=== PATIENT | female | born 2000 | race Caucasian/White ===

== ENCOUNTER 2020-04-09 12:54 | Emergency (ER) | payer OTHER ==
[2020-04-09 13:17] VITALS: BP 114/67; TEMP 99.2; O2SAT 99
--- NOTE | 2020-04-09 13:19 | ED.PDOC ---
History of Present Illness - General Chief Complaint: Dental/Mouth Stated Complaint: toothache Time Seen by Provider: 04/09/20 13:05 Source: patient Exam Limitations: no limitations - History of Present Illness Initial Comments: The patient is a 19-year-old female presented emergency room secondary to dental pain. The patient has a fractured second molar on her right mandible. There also appears to be a cavity in the area. No abscess formation. No other issues. She has been taking Tylenol. Timing/Duration: 1 week Severity: moderate Improving Factors: nothing Worsening Factors: eating Associated Symptoms: denies symptoms Allergies/Adverse Reactions: Allergies NO KNOWN ALLERGY Allergy (Verified 04/09/20 13:10) Home Medications: Ambulatory Orders Clindamycin HCl 300 mg PO Q8HR #20 cap 04/09/20 Review of Systems - Review of Systems Constitutional: States: no symptoms reported EENTM: States: see HPI Respiratory: States: no symptoms reported Cardiology: States: no symptoms reported Gastrointestinal/Abdominal: States: no symptoms reported Genitourinary: States: no symptoms reported Musculoskeletal: States: no symptoms reported Skin: States: no symptoms reported Neurological: States: no symptoms reported Endocrine: States: no symptoms reported Hematologic/Lymphatic: States: no symptoms reported All other Systems: No Change from Baseline Past Medical History (General) - Vaccination History Immunizations Up to Date: Yes - Social History Hx Alcohol Use: No Hx Substance Use: No - Activities of Daily Living Hospice Agency (if applicable):: None Family Medical History - Family History Mother Family History: No Known Physical Exam - Physical Exam General Appearance: Alert, Comfortable, No apparent distress Eye Exam: bilateral normal Ears, Nose, Throat: hearing grossly normal, other - Very poor dentition. See above. No obvious abscess formation. No airway impingement. Neck: non-tender, full range of motion, supple Respiratory: no respiratory distress, no accessory muscle use Cardiovascular/Chest: normal peripheral pulses, no edema Peripheral Pulses: radial,right: 2+, radial,left: 2+ Rectal Exam: deferred Extremity: normal range of motion, no pedal edema, normal capillary refill Neurologic: weir fisher II-XII nml as tested, alert, normal mood/affect, oriented x 3 Skin Exam: normal color Comments: Vital Signs - 24 hr 04/09/20 04/09/20 13:06 13:13 Temperature 99.2 F Pulse Rate [ 61 61 brachial] Respiratory 16 16 Rate Blood Pressure 114/67 [Left Arm] O2 Sat by Pulse 99 Oximetry Progress - Progress Progress: 04/09/20 13:17 The patient is a 19-year-old female presenting to the emergency room secondary to dental pain from a fractured right lower molar possibly with a superimposed cavity. The patient is going to be placed on clindamycin 300 mg 3 times a day for the next 7 days. She does need to follow-up with a dentist. I would recommend taking 2 Aleve twice a day for the next week with food to help reduce discomfort. She can continue to take Orajel or Anbesol topically to help reduce pain. Also if she can find it, she can apply a drop of clove oil to the fractured tooth after she brushes it clean, with a Q-tip. This may help deaden the nerve and reduce the pain. No evidence of any abscess formation at this time. Keep follow-up with dentist. ER warnings are given. renée hamm [id number] Departure - Departure Clinical Impression: Dental caries Disposition: Discharge to Home or Self Care Condition: Fair Departure Forms: ED Discharge - Pt. Copy, Patient Portal Self Enrollment Instructions: DI for Dental Pain Diet: regular diet Activity: increase activity as tolerated Prescriptions: Clindamycin HCl 300 mg PO Q8HR #20 cap Home Medications: Ambulatory Orders Clindamycin HCl 300 mg PO Q8HR #20 cap 04/09/20 Additional Instructions: The patient is a 19-year-old female presenting to the emergency room secondary to dental pain from a fractured right lower molar possibly with a superimposed cavity. The patient is going to be placed on clindamycin 300 mg 3 times a day for the next 7 days. She does need to follow-up with a dentist. I would recommend taking 2 Aleve twice a day for the next week with food to help reduce discomfort. She can continue to take Orajel or Anbesol topically to help reduce pain. Also if she can find it, she can apply a drop of clove oil to the fractured tooth after she brushes it clean, with a Q-tip. This may help deaden the nerve and reduce the pain. No evidence of any abscess formation at this time. Keep follow-up with dentist. ER warnings are given.
== END 2020-04-09 13:28 | disposition home or self-care (01) ==
LOC: ER 12:54
DX: K02.9 Dental caries, unspecified (principal); K08.89 Other specified disorders of teeth and supporting structures